=== PATIENT | female | born 1970 | race Caucasian/White ===

== ENCOUNTER 2022-10-19 00:04 | Day surgery (SDC) | payer OTHER, SELFPAY ==
[2022-10-10 14:25] VITALS: BMI 31.8
--- NOTE | 2022-10-18 16:04 | WPDANESEPPF ---
Anes - Initial Pre Proc Eval Procedure: Operation Date: 10/19/22 08:00 Proposed Procedures p Screening Colonoscopy - Long Bonds MD Date/Time: 10/18/22 16:04 Surgeon: Long Bonds MD Pre Op Diagnosis: neoplasm screening Patient Data Age: 52 Gender: F Height: 1.63 m Weight: 84 kg Allergies Allergy/AdvReac Type Severity Reaction Status Date / Time No Known Allergies Allergy Unknown Unverified 10/19/22 06:55 Home Medications Medication Instructions Recorded Confirmed Type albuterol sulfate 90 mcg/actuation 2 inh inhalation Q4H PRN Shortness 10/10/22 10/19/22 History aerosol inhaler Of Breath Or Wheezing aripiprazole 5 mg tablet 5 mg PO HS 10/10/22 10/19/22 History chlorthalidone 25 mg tablet 25 mg PO DAILY 10/10/22 10/19/22 History divalproex 250 mg tablet,extended 250 mg PO QAM 10/10/22 10/19/22 History release 24 hr divalproex 500 mg tablet,extended 500 mg PO HS 10/10/22 10/19/22 History release 24 hr ergocalciferol (vitamin D2) 1,250 1,250 mcg PO WEEKLY 10/10/22 10/19/22 History mcg (50,000 unit) capsule (Vitamin D2) lithium carbonate 300 mg capsule 900 mg PO HS 10/10/22 10/19/22 History lorazepam 1 mg tablet 1 mg PO BID PRN Anxiety 10/10/22 10/19/22 History norethindrone 1 mg-ethinyl 1 tablet PO DAILY 10/10/22 10/19/22 History estradiol 20 mcg (24)-iron 75 mg (4) tablet (Blisovi 24 Fe) verapamil 240 mg tablet,extended 240 mg PO HS 10/10/22 10/19/22 History release Patient hx anesthesia problems: none Family hx anesthesia problems: none Results Review: All pre-operative results and documents have been reviewed as part of the pre-operative evaluation. [facility] Past Medical History Medical History (Updated 10/19/22 @ 07:22 by Long Bonds MD) Anxiety Asthma Bipolar 1 disorder HTN (hypertension) Hyperlipidemia Obesity Social History Social History Smoking status: Never smoker Alcohol intake: current Substance use: never Substance use type: does not use Living arrangements: with family Spiritual care concerns: No Anes - Eval Final PreProcedure Day of Procedure 10/18/22 16:04 Patient weight: obese Heart: regular rate and rhythm Lungs: clear to auscultation and normal air movement Airway: Mallampati scale class II Neurological: alert and oriented Last oral intake: >/= 8 hours ASA classification: III Emergent: no Anesthetic plan: proceed Anesthesia type and monitoring: general GIVS Results Review: All pre-operative results and documents have been reviewed as part of the pre-operative evaluation. Informed Consent: The patient's anesthetic plan and its attendant risks and benefits were discussed with the patient/family/POA. Questions were solicited and answers provided to the satisfaction of the patient/family/POA.
[2022-10-19 07:02] VITALS: BP 179/97; PULSE 76; RESP 18; TEMP 36.3; O2SAT 98; BMI 31.2
[2022-10-19] MEDS: LACTATED RINGERS 1,000 ML 150 ML IV CONT (07:09)
--- NOTE | 2022-10-19 07:21 | P.HP_ITS ---
History of Present Illness History of Present Illness Consent: Risks, benefits, and alternatives have been discussed and questions answered. Patient agrees to proceed with procedure. Chief complaint: neoplasm screening Narrative: Laura Saba is a 52 year old female Presents for screening colonoscopy. Patient's current weight appetite and bowel movements are normal. Patient denies abdominal pain. She has had no bleeding. Family history noncontributory. Review of Systems Review of Systems: Review of systems noncontributory. [facility] Past Medical History Medical History (Updated 10/19/22 @ 07:22 by Long Bonds MD) Anxiety Asthma Bipolar 1 disorder HTN (hypertension) Hyperlipidemia Obesity Social History Social History Smoking status: Never smoker Alcohol intake: current Substance use: never Substance use type: does not use Living arrangements: with family Spiritual care concerns: No Meds Home Medications and Allergies Home Medications Medication Instructions Recorded Confirmed Type albuterol sulfate 90 mcg/actuation 2 inh inhalation Q4H PRN Shortness 10/10/22 10/19/22 History aerosol inhaler Of Breath Or Wheezing aripiprazole 5 mg tablet 5 mg PO HS 10/10/22 10/19/22 History chlorthalidone 25 mg tablet 25 mg PO DAILY 10/10/22 10/19/22 History divalproex 250 mg tablet,extended 250 mg PO QAM 10/10/22 10/19/22 History release 24 hr divalproex 500 mg tablet,extended 500 mg PO HS 10/10/22 10/19/22 History release 24 hr ergocalciferol (vitamin D2) 1,250 1,250 mcg PO WEEKLY 10/10/22 10/19/22 History mcg (50,000 unit) capsule (Vitamin D2) lithium carbonate 300 mg capsule 900 mg PO HS 10/10/22 10/19/22 History lorazepam 1 mg tablet 1 mg PO BID PRN Anxiety 10/10/22 10/19/22 History norethindrone 1 mg-ethinyl 1 tablet PO DAILY 10/10/22 10/19/22 History estradiol 20 mcg (24)-iron 75 mg (4) tablet (Blisovi 24 Fe) verapamil 240 mg tablet,extended 240 mg PO HS 10/10/22 10/19/22 History release Allergies Allergy/AdvReac Type Severity Reaction Status Date / Time No Known Allergies Allergy Unknown Unverified 10/19/22 06:55 Vital Signs Vital Signs - 24 hr 10/19/22 07:02 Temperature 97.3 F L Pulse Rate 76 Respiratory Rate 18 Blood Pressure 179/97 H Pulse Oximetry 98 Oxygen Delivery Room Air Exam Narrative: Physical exam reveals patient be alert. Vital signs stable. HEENT exam is unremarkable. Patient is anicteric. Lungs are clear to auscultation and percussion. Heart is without murmur or extra sounds. Abdomen bowel sounds present soft nontender with no organomegaly. Assessment and Plan Assessment and plan (1) Encounter for screening colonoscopy: Code(s): Z12.11 - Encounter for screening for malignant neoplasm of colon Status: Acute Assessment and Plan: Patient presents today for screening colonoscopy. She appears to be at average risk for colon polyps. (2) Bipolar 1 disorder: Code(s): F31.9 - Bipolar disorder, unspecified Status: Acute
[2022-10-19 08:20] VITALS: BP 133/87; PULSE 75; RESP 23; O2SAT 97
[2022-10-19 08:30] VITALS: BP 146/101; PULSE 64; RESP 17; O2SAT 99
[2022-10-19 08:40] VITALS: BP 159/100; PULSE 62; RESP 15; O2SAT 99
== END 2022-10-19 08:48 | disposition home or self-care (01) ==
PROVIDERS: PCP Internal Medicine; Visit Provider Internal Medicine Gastroenterology
PROC: 0DJD8ZZ Inspection of Lower Intestinal Tract, Via Natural or Artificial Opening Endoscopic (ICD-10-PCS; CPT 45378; principal; 2022-10-19 08:00)
DX: Z12.11 Encounter for screening for malignant neoplasm of colon (principal); K64.8 Other hemorrhoids; I10 Essential (primary) hypertension; E78.5 Hyperlipidemia, unspecified; J45.909 Unspecified asthma, uncomplicated; F31.9 Bipolar disorder, unspecified; F41.9 Anxiety disorder, unspecified; E66.9 Obesity, unspecified; Z68.31 Body mass index [BMI] 31.0-31.9, adult; Z79.51 Long term (current) use of inhaled steroids
CPT/HCPCS: 45378; J2704; J7120

== ENCOUNTER 2024-04-11 16:22 | Emergency (ER) | payer OTHER, SELFPAY ==
--- NOTE | ~2024-04-11 | XR_ITS ---
EXAMINATION: XR foot LT min 3V DATE: 04/11/2024 19:49 INDICATION: Swelling and erythema TECHNIQUE: Dorsoplantar, oblique and lateral views of the left foot were obtained. COMPARISON: 04/17/2017 FINDINGS: Alignment is normal. No fracture. Joint spaces are normal. No cortical erosions or periosteal reactio n. Small Achilles and plantar calcaneal spurs. Prominent soft tissue swelling over the dorsum of the foot. IMPRESSION: 1. No acute osseous abnormality. Reviewed, dictated and finalized at location A.
[2024-04-11 16:25] VITALS: BP 161/110; PULSE 99; RESP 15; O2SAT 100
--- NOTE | 2024-04-11 19:45 | ED.GENADULT ---
HPI - General Adult General Chief complaint: Extremity Problem,Nontraumatic Stated complaint: left foot swelling Time Seen by Provider: 04/11/24 19:16 History of Present Illness HPI narrative: this is a 53-year-old female with chronic lower extremity edema presenting with redness and swelling to her left foot. Patient is unsure with was traumatic as she has a large dog that jumped on her foot playfully. It has now become red and painful and warm to touch. No history of cellulitis. No systemic signs of illness. The patient's physicians have recently taken her off diuretics due to some elevated cholesterol levels. Related Data Home Medications Medication Instructions Recorded Confirmed albuterol sulfate 90 mcg/actuation 2 inh inhalation Q4H PRN Shortness 10/10/22 10/19/22 aerosol inhaler Of Breath Or Wheezing aripiprazole 5 mg tablet 5 mg PO HS 10/10/22 10/19/22 chlorthalidone 25 mg tablet 25 mg PO DAILY 10/10/22 10/19/22 divalproex 250 mg tablet,extended 250 mg PO QAM 10/10/22 10/19/22 release 24 hr divalproex 500 mg tablet,extended 500 mg PO HS 10/10/22 10/19/22 release 24 hr ergocalciferol (vitamin D2) 1,250 1,250 mcg PO WEEKLY 10/10/22 10/19/22 mcg (50,000 unit) capsule (Vitamin D2) lithium carbonate 300 mg capsule 900 mg PO HS 10/10/22 10/19/22 lorazepam 1 mg tablet 1 mg PO BID PRN Anxiety 10/10/22 10/19/22 norethindrone 1 mg-ethinyl 1 tablet PO DAILY 10/10/22 10/19/22 estradiol 20 mcg (24)-iron 75 mg (4) tablet (Blisovi 24 Fe) verapamil 240 mg tablet,extended 240 mg PO HS 10/10/22 10/19/22 release Allergies Allergy/AdvReac Type Severity Reaction Status Date / Time No Known Allergies Allergy Unknown Verified 04/11/24 16:22 [facility] Past Medical History Medical History Anxiety Asthma Bipolar 1 disorder HTN (hypertension) Hyperlipidemia Obesity Social History Social History Smoking status: Never smoker Alcohol intake: current Substance use: never Substance use type: does not use Living arrangements: with family Spiritual care concerns: No Exam Narrative: APPEARANCE: No apparent distress. Head: atraumatic. EYES: EOMI, NOSE: Atraumatic NECK: Trachea midline RESPIRATORY: No increased rate of breathing CARDIOVASCULAR: RRR, Plus two pitting edema of the legs bilaterally. Redness and erythema over the patient's left foot with warmth. There is no fluctuance. Point of care 3 point compression test the left leg revealed no DVTs. ABDOMINAL: Non-distended MUSCULOSKELETAl: No obvious deformities NEURO: Alert. Moving 4/4 extremities SKIN:: Warm, dry. Normal color PSYCHIATRIC: Normal affect Course Vital Signs Vital signs: Vital Signs Pulse Rate 99 04/11/24 16:25 Respiratory Rate 15 04/11/24 16:25 Blood Pressure 161/110 H 04/11/24 16:25 Pulse Oximetry 100 04/11/24 16:25 Oxygen Delivery Room Air 04/11/24 16:25 Pulse Rate 73 04/11/24 20:13 Respiratory Rate 20 04/11/24 20:13 Blood Pressure 146/98 H 04/11/24 20:13 Pulse Oximetry 100 04/11/24 20:13 Oxygen Delivery Room Air 04/11/24 16:25 Medical Decision Making [facility] Narrative Medical decision making narrative: -Course: 53-year-old female presenting redness and swelling of her left foot. Point of care DVT ultrasound was negative and her edema is chronic some less concerned for the acute DVT. X-rays negative. Patient given Ancef IV. Discharged on antibiotics for suspected cellulitis. Given return precautions. -DDX includes but is not limited to: Cellulitis, DVT, chronic edema, gout -Independent interpretation of studies: -Interventions: 2 g Ancef -Shared decision making / Disposition:discharged. -RX cephalexin 500 mg t.i.d. times x7 days Vital Signs Vital Signs: Vital Signs Pulse Rate 99 04/11/24 16:25 Respiratory Rate 15 04/11/24 16:25 Blood Press
[2024-04-11 20:13] VITALS: BP 146/98; PULSE 73; RESP 20; O2SAT 100
[2024-04-11 20:16] LABS: Basophils Percent Auto 0.4 % (0.2-1.2); Eosinophils Absolute Auto 0.3 K/mm3 (0-0.3); Eosinophils Percent Auto 2.4 % (0-4.4); Hematocrit 40.3 % (37.0-47.0); Immature Granulocyte Absolute 0.03 K/mm3 (0.00-0.031); Immature Granulocyte Percent A 0.3 % (0-0.5); Lymphocytes Absolute Auto 3.53 K/mm3 (0.9-3.2); Lymphocytes Percent Auto 33.6 % (18.3-44.2); Mean Corpuscular HGB Conc 32.3 g/dl (32-36); Mean Corpuscular Hemoglobin 30.4 pg (26-34); Mean Corpuscular Volume 94.4 fl (80-100); Mean Platelet Volume 10.3 fl (7.4-10.4); Monocytes Absolute Auto 0.7 K/mm3 (0.1-0.6); Monocytes Percent Auto 6.4 % (2.6-8.5); Neutrophils Percent Auto 56.9 % (45.5-73.1); Platelet Count Result 335 k/mm3 (150-375); Red Blood Count 4.27 M/mm3 (4.2-5.4); Red Cell Distribution Width 13.2 % (11.5-14.5); White Blood Count 10.5 K/mm3 (4.5-10.0)
[2024-04-11] MEDS: ceFAZolin 2 GM/D5W 50 ML 2 GM/50 ML BAG IVPB (20:16)
[2024-04-11 20:27] LABS: Alanine Aminotransferase 18 U/L (6-35); Albumin Level 4.2 g/dL (3.5-5.1); Alkaline Phosphatase 60 U/L (38-126); Anion Gap 11 mmol/L (4-12); Aspartate Amino Transferase 25 U/L (14-36); Bilirubin,Total 0.3 mg/dL (0.2-1.3); Blood Urea Nitrogen 13 mg/dL (7-17); Calcium 10.3 mg/dL (8.4-10.2); Carbon Dioxide 29 mmol/L (22-30); Chloride 102 mmol/L (98-107); Estimated CRCL calculation 85 ml/min; Estimated Glomerular Filt Rate > 60; Glucose 99 mg/dL (65-110); Potassium 3.7 mmol/L (3.4-5.0); Sodium 142 mmol/L (137-145)
[2024-04-11 20:29] LABS: Partial Thromboplastin Time 24.9 Seconds (22.3-36.8); Prothrombin Time 13.6 Seconds (11.1-14.7)
[2024-04-11 21:30] VITALS: BP 144/81; PULSE 73; RESP 20; O2SAT 99
== END 2024-04-11 21:30 | disposition home or self-care (01) ==
PROVIDERS: Emergency Provider Emergency Medicine; PCP Internal Medicine
DX: L03.116 Cellulitis of left lower limb (principal); I10 Essential (primary) hypertension; E78.5 Hyperlipidemia, unspecified; E66.9 Obesity, unspecified; Z68.30 Body mass index [BMI] 30.0-30.9, adult; R60.0 Localized edema; J45.909 Unspecified asthma, uncomplicated; F31.9 Bipolar disorder, unspecified; F41.9 Anxiety disorder, unspecified; Z79.899 Other long term (current) drug therapy
CPT/HCPCS: 36415; 73630; 80053; 85025; 85610; 85730; 96365; 99284; J0690

== ENCOUNTER 2025-08-25 08:22 | Outpatient (CLI) | payer OTHER, SELFPAY ==
--- NOTE | ~2025-08-25 | DEXA_ITS ---
Bone Density Report Name: ANN MORRIS Age: 55 Sex: Female Ethnicity: White Date of : 1970 Indication: postmenopausal; screening for osteoporosis; height loss; cancer; asthma or emphysema; Referring Provider: ADAM, LEEANNE Study: Bone densitometry was performed. Exam Date: August 25, 2025 Accession number: [id number] Bone Density: Region BMD T-score Z-score Classification AP Spine(L1-L4) 1.142 0.9 1.8 Normal Femoral Neck (Left) 0.682 -1.5 -0.6 Osteopenia Total Hip (Left) 0.997 0.4 1.0 Normal Femoral Neck (Right) 0.733 -1.0 -0.1 Normal Total Hip (Right) 0.981 0.3 0.9 Normal Total Hip Mean 0.989 0.4 1.0 Normal World Health Organization criteria for BMD impression classify patients as: Normal (T-score at or above -1.0), Osteopenia (T-score between -1.0 and -2.5), or Osteoporosis (T-score at or below -2.5). 10-year Fracture Risk(1): Major Osteoporotic Fracture 5.6% Hip Fracture 0.4% Reported Risk Factors: [place] (), Neck BMD=0.682, BMI=31.9 (1) FRAX(R) Version 3.08. Fracture probability calculated for an untreated patient. Fracture probability may be lower if the patient has received treatment. Clinical Information Provided by Patient: Has used the following medications: Vitamin D Has the following medical conditions: Asthma or Emphysema, Cancer Patient maximum height was 64.0 Menopause Age: 54 No regular weight bearing exercise Drinks caffeinated beverages Onset of menses at age 14 Number of children 1 Impression: The patient has low bone mass, based on the Left Femoral Neck T-score. The patient has an estimated ten-year risk of hip fracture of 0.4% and an estimated ten-year risk of major fracture of 5.6%, based on the WHO FRAX algorithm. Discussion: BONE DENSITY IS LOW AT ONE OR MORE SKELETAL SITES. This patient's lowest T-score is low at one or more skeletal sites. It meets the World Health Organization's (WHO) criteria for ?low bone mass? (T-score between -1.0 and -2.5). The patient's 10-year risk of fracture as calculated by FRAX is less than the threshold where pharmacological therapy is recommended by the National Osteoporosis Foundation (NOF). However, all treatment decisions require clinical judgment and consideration of individual patient factors, including patient preferences, comorbidities, previous drug use, risk factors not captured in the FRAX model (e.g., frailty, falls, vitamin D deficiency, increased bone turnover, interval significant decline in bone density) and possible under or overestimation of fracture risk by FRAX. The patient should follow a healthful lifestyle (good nutrition with adequate calcium and vitamin D, and appropriate weight-bearing exercise). Follow-Up: Consider repeating this study in 2 to 3 years to reassess this patient's status, or sooner if there is some new clinical indication. Reported by: ANTHONY on 08/25/2025 9:09:00 AM. Reviewed, dictated and finalized at location A.
--- OUTSIDE RECORDS SUMMARY | 2025-08-25 08:42 | XMS_ITS | Clinical Summary ---
Author Organization [facility] Address [address] [place] [address] Care Team Providers Care Regional Marketing Director Name Role Phone Cayla Pink CONSOLIDATION ACCOUNTANT-[employer] PROGRAM TECHNICIAN Primary Care Provider + Source Comments [facility],non-owned Affiliates and Associated Physician Practices is amultiple site organization consisting of ambulatory clinics and hospital sitesin [place], [place], [place] and [place]. This disclosure is being madepursuant to the Care Everywhere program and may not contain all information available regarding this patient. Last updated 18.[facility] Allergies No known active allergies Medications * Be aware that medications may not be up to date on this document. Alwaysverify current medications with the patient. FENOFIBRATE PO Activ e MONTELUKAST SODIUM PO Active DIVALPROEX SODIUM PO Active LITHIUM CARBONATE PO Active methyldopa (ALDOMET) 250 MG tablet Take 250 mg by mouth 2 times daily Active Family History Relation Name Status Comments Father Alive Mother Alive Social History Tobacco Use Types Packs/Day Years Used Date Smoking Tobacco: Never Smokeless Tobacco: Never Comments No Sex and Gender Information Value Date Recorded Sex Assigned at Not on file Legal Sex Female 12:57 PM [employer] Gender Identity Not on file Sexual Orientation Not on file Last Filed Vital Signs Vital Sign Reading Time Taken Comments Blood Pressure 118/72 05/13/2017 6:37 PM CDT Pulse 68 05/13/2017 6:37 PM CDT Temperature 36.8 C (98.3 F) 05/13/2017 6:37 PM CDT Respiratory Rate 16 05/13/2017 6:37 PM CDT Oxygen Saturation 99% 05/13/2017 6:37 PM CDT Inhaled Oxygen Concentration - - Weight 79.4 kg (175 lb) 05/13/2017 6:37 PM CDT Height 160 cm (5' 3) 05/13/2017 6:37 PM CDT Body Mass Index 31 05/13/2017 6:37 PM CDT Plan of Treatment Health Maintenance Due Date Last Done Comments COLOGUARD (AGES 45-75) - COL ON CA SCREENING 1972 COLON MONITORING 1972 COLONOSCOPY - COLON CA SCREENING 1972 CT COLONOGRAPHY - COLON CA SCREENING 1972 Colorectal Cancer Screening 1972 FIT - COLON CA SCREENING 1972 FLEX SIG - COLON CA SCREENING 1972 LIPID TESTING 1972 MAMMOGRAM 1972 HIV SCREENING 1987 HEPATITIS C SCREENING 08/01/1990 DTAP/TDAP/TD VACCINES (1 - Tdap) 1991 HEPATITIS B VACCINE (1 of 3 - 19+ 3-dose series) 1991 SCREENING FOR DIABETES 05/13/2017 PNEUMOCOCCAL VACCINE 50+ (1 of 1 - PCV) 2022 ZOSTER VACCINE (1 of 2) 2022 DEPRESSION SCREENING 09/23/2024 COVID-19 VACCINE (1 - 2024-2 6 season) 2025 INFLUENZA VACCINE (#1) 2025 HIB VACCINE Aged Out No longer eligi ble based on patient's age to complete this topic HPV VACCINE Aged Out No longer eligi ble based on patient's age to complete this topic MENINGOCOCCAL (Group B) VACC INE SHARED DECISION-MAKING Aged Out No longer eligibl e based on patient's age to complete this topic MENINGOCOCCAL GROUPS A/C/Y/W VACCINE Aged Out No longer eligible b ased on patient's age to complete this topic Insurance [employer] Care Teams Regional Marketing Director Relationship Specialty Start Date End Date Cayla Pink APRN-SEVERIANO [address] [id number] PCP - General Nurse Practitioner 05/13/17
--- OUTSIDE RECORDS SUMMARY | 2025-08-25 08:43 | XMS_ITS | Clinical Summary ---
Author Organization [facility] Address [address] [place] [address] Care Team Providers [employer] Name Role Phone Oscar Champion MD Unavailable [phone] Redd Pedroza MD Primary Care Provider [phone] Maya Velez MD Unavailable [phone] Allergies Active Allergy Reactions Criticality Noted Date Comments Animal Dander Unknown 04/11/2016 Other Unknown 04/11/2016 Medications LITHIUM 300 mg capsule Take 2 tablet/capsul e (600 mg total) by mouth daily Along with 150mg to equal 750mg daily 5 08/15/2018 Active lithium 150 mg capsule Take 1 capsule (150 mg total) by mouth daily Along with 2 300mg (600mg) to equal 750mg daily 03/15/2023 Active divalproex ER (DEPAKOTE ER) 500 mg 24 hr tablet Take 1 tablet (500 mg total) by mouth nightly 02/25/2023 Active blood glucose diagnostic (glucose blood) strip Test blood sugar TID and prn 100 each 11/21/2023 Active lancets misc 1 each by other route 3 (three) times a day 100 each 02/21/2024 Active divalproex ER (DEPAKOTE ER) 250 mg 24 hr tablet Take 1 tablet (250 mg total) by mouth every morning 02/11/2024 Active olmesartan (BENICAR) 20 mg tablet TAKE 1 TABLET BY MOUTH EVERY DAY 90 tablet 2 11/23/2024 Active verapamil SR (CALAN SR) 240 mg CR tablet TAKE 1 TABLET BY MOUTH EVERY DAY AT NIGHT 90 tablet 3 11/30/2024 Active albuterol HFA (PROVENTIL HFA,VENTOLIN HFA,PROAIR HFA) 90 mcg/actuation inhaler Inhale 2 puffs every 4 (four) hours as needed for wheezing 1 each 1 12/07/2024 Active icosapent ethyL (VASCEPA) 1 gram capsule TAKE 2 CAPSULES BY MOUTH 2 TIMES A DAY. 360 capsule 2 12/07/2024 Active furosemide (LASIX) 20 mg tablet TAKE 1 TABLET BY MOUTH EVERY DAY 90 tablet 3 01/04/2025 Active metFORMIN XR (GLUCOPHAGE XR) 500 mg 24 hr tablet TAKE 1 TABLET BY MOUTH EVERY DAY WITH DINNER 90 tablet 3 05/26/2025 Active blood glucose diagnostic ([employer] Verio test strips) strip In Vitro 02/11/2024 Active ergocalciferol (VITAMIN D) 50,000 unit capsule TAKE 1 CAPSULE BY MOUTH ONE TIME PER WEEK 12 capsule 3 07/12/2025 Active Active Problems Problem Noted Date Diagnosed Date Hypertriglyceridemia 06/09/2024 Assessment & Plan (10/08/2024 4:44 PM FINANCIAL BUSINESS ANALYST): 54 y.o. and female with dyslipidemia, including severe hypertriglyceridemia ( >=175 mg/dl), and risk enhancing factor - elevated hs-CRP (>=2.0 mg/L), currently treated with lipid-lowering therapies Icosapent Ethyl (Vascepa) 2 gm PO BID; most recent lipid profile reviewed. History of statin intolerance = No 10-year risk of future ASCVD = low risk (<5%) CT coronary calcium score = N/A Most recent lipid profile Lab Results Component Value Date POCCHOL 228 04/04/2023 POCTRIG 482 05/15/2022 POCHDL 37 05/15/2022 Lab Results Component Value Date CHOL 163 09/07/2024 TRIG 482 (H) 09/07/2024 HDL 34 (L) 09/07/2024 LDLCALC See Comment 09/07/2024 Lab Results Component Value Date LDLDIRECT 57 09/07/2024 Lab Results Component Value Date LIPOA 13 03/19/2024 Lab Results Component Value Date APOB 79 03/19/2024 Lab Results Component Value Date CRPHS 12.72 03/19/2024 TG = 482(H) [ref. range: <= 149 mg/dL] - Persistently elevated, primary hypertriglyceridemia ( >=175 mg/dl) constitutes a risk enhancing factor hs-CRP = 12.72(H) [ref. range: <= 2 mg/L] - hs-CRP >=2.0 mg/L constitutes a risk enhancing factor Plan: 1) Repeat lipid panel at least annually; check Lp(a), ApoB, and hs-CRP as indicated 2) Weight control, exercise, diet (low saturated fat and sugar), smoking cessation (if applicable) 3) Consider adding statin (for TG reduction; LDL-C < 70 mg/dL at target range already) 4) No indications for adding other non-statin LDL-C lowering agents (if LDL-C remains > 70 mg/dl and/or statin intolerant) 5) No indications for adding PCSK9 inhibitor (if further LDL-C reduction needed and/or statin intolerant) 6) TG-lowering agents: CONTINUE Icosapent Ethyl (Vascepa) 2 gm PO BID Consider ADDING Fenofibrate (Tricor) 145 mg daily (avoid if active renal-liver disease) ELIMINATE added sugars (<5% of total calories), low-fat diet (<=10 to 15% of total calories), abstain from alcohol OFF Aripiprazole (Abilify), which can cause aripiprazole-induced hypertriglyceridemia and weight gain Hyperglycemia, OCPs, beta-blockers, thiazide & loop diuretics can also exacerbate hypertriglyceridemia (TGs) - ?taking Chlorthalidone (thiazide-like diuretic)? Type 2 diabetes mellitus wit hout complication, without long-term current use of insulin 03/24/2024 Assessment & Plan (12/07/2024 8:59 AM CDT): Stable, will continue as before. Assessment & Plan (10/08/2024 4:45 PM FINANCIAL BUSINESS ANALYST): 54 y.o. female with type 2 diabetes mellitus, insulin-naive (Metformin monotherapy), complicated by hypertension, hyperlipidemia and severe hypertriglyceridemia, obesity, thyroid nodule, vitamin D deficiency, and bipolar disorder (on [place] mood stabilizer). She has a history of gestational diabetes (GDM), which required treatment with insulin. Glycemic control at target (target A1c < 7.0%) No episodes of hypoglycemia; adherent with medications and BG monitoring (glucometer) No results found for: CPEPTIDE, [id number], IA2AB Lab Results Component Value Date HGBA1C 5.7 09/07/2024 GLUCOSE 106 09/07/2024 Plan: 1) Medications Continue Metformin XR 500 mg PO qPM (monitor GFR >30, check B12 level) Consider adding GLP-1 receptor agonist 2) Monitoring BG testing supplies - glucometer and/or continuous glucose monitor (CGM) Emergency glucagon treatment product, if appropriate Gvoke HypoPen or Zegalogue premixed glucagon auto-injector Baqsimi glucagon nasal powder Hgb A1C, renal function panel, lipid profile, urine microalbumin:Cr Follow-up with ambulatory diabetes education Retinal examination - follow-up with Ophthalmology Foot care evaluation - follow-up with Podiatry Vaccinations: Flu (yearly), Tdap, Hep B, Herpes zoster (50 yr), COVID-19 Assessment & Plan (03/24/2024 11:06 PM CDT): 53 y.o. female with type 2 diabetes mellitus, insulin-naive (Metformin monotherapy), complicated by hypertension, hyperlipidemia and severe hypertriglyceridemia, obesity, thyroid nodule, vitamin D deficiency, and bipolar disorder (on [place] mood stabilizer). She has a history of gestational diabetes (GDM), which required treatment with insulin. C-peptide = N/A Glycemic control at target with recent Hgb A1c = 6.6% (02/21/2024) (target A1c < 7.0%) No episodes of hypoglycemia; adherent with medications and BG monitoring (glucometer) Plan: 1) Medications Continue Metformin XR 500 mg PO qPM (monitor GFR >30, check B12 level) Consider adding GLP-1 receptor agonist 2) Monitoring BG testing supplies - glucometer and/or continuous glucose monitor (CGM) Emergency glucagon treatment product, if appropriate Gvoke HypoPen or Zegalogue premixed glucagon auto-injector Baqsimi glucagon nasal powder Hgb A1C, renal function panel, lipid profile, urine microalbumin:Cr Follow-up with ambulatory diabetes education Retinal examination - follow-up with Ophthalmology Foot care evaluation - follow-up with Podiatry Vaccinations: Flu (yearly), Tdap, Hep B, Herpes zoster (50 yr), COVID-19 Vitamin D deficiency 03/19/2024 Assessment & Plan (03/19/2024 4:41 PM CDT): 53 y.o. female with history of vitamin D deficiency-insufficiency previously treated with Vit D2 50,000 IU/weekly Latest Vitamin 25(OH)-D level = 24.2(L) (21-29 ng/ml, Insufficiency) (<20 ng/ml, Deficiency) Denies active symptoms: no fatigue, no bone pain, no muscle [id number], no mood changes (depression). Risk factors: no dark-colored skin, no obesity, no bariatric surgery, no cystic fibrosis, no Crohn's disease, no celiac disease, no hepatic-renal disease Plan: 1) Check Vit 25(OH)-D level (if not done in last 3 months) 2) Start Vit D2 50,000 IU/weekly x 8-12 weeks; then transition to maintenance Vit D3 2,000-5,000 IU/day Mixed hyperlipidemia 03/19/2024 Assessment & Plan (03/24/2024 11:13 PM CDT): 53 y.o. and female with mixed hyperlipidemia associated with type 2 diabetes mellitus, including severe hypertriglyceridemia (TG >500 mg/dL) NOT on statin + recently started on Icosapent Ethyl (Vascepa) 2 gm PO BID for TGs; most recent lipid profile reviewed. Diabetes and dyslipidemia (increased LDL-C and/or TGs) are both high risk conditions for ASCVD ASCVD 10-year risk score = 11.3% (High-intensity statin recommended because of known diabetes and 10-year risk >=7.5%) Lab Results Component Value Date CHOL 252 (H) 11/11/2023 TRIG 1,590 (HH) 02/21/2024 HDL 27 (L) 11/11/2023 LDLCALC Comment (A) 11/11/2023 Latest lipid panel (11/11/2023 and 03/19/2024): Cholesterol = 252(H) [ref. range: 30-199 mg/dL] HDL-C = 27(L) [ref. range: >= 40 mg/dL] LDL-C = N/A [ref. range: <= 129 mg/dL] - Primary hypercholesterolemia (LDL-C 160-189 mg/dL constitutes a risk enhancing factor TG = 1,590(H) [ref. range: <= 149 mg/dL] - Persistently elevated, primary hypertriglyceridemia ( >=175 mg/dl) constitutes a risk enhancing factor Lp(a) = 13 [ref. range: <= 75 nmol/L] - Lp(a) >= 50 mg/dL or >=125 nmol/L constitutes a risk enhancing factor ApoB = 79 [ref. range: <= 90 mg/dL] - ApoB level >= 130 mg/dL corresponds to an LDL-C >=160 mg/dL and constitutes a risk enhancing factor hs-CRP = 12.72(H) [ref. range: <= 2 mg/L] - hs-CRP >=2.0 mg/L constitutes a risk enhancing factor Consider checking Lp(a) and ApoB; especially if personal history or first-degree relative with premature ASCVD (particularly if otherwise considered low-risk), severe hypercholesterolemia (LDL-C >=190), or borderline ASCVD risk (10-year risk = 5 to 7.5%) Levels of apo B and LDL-C are discordant in 20% of patients, including those with elevated triglycerides, type 2 diabetes or obesity. In some patients, LDL-C levels can appear satisfactory, but the true level of circulating atherogenic particles is actually high. An elevated apo B level in these patients predicts a higher risk of atherosclerotic cardiovascular disease. In such patients, treatment with a lipid-lowering drug should be considered. Plan: 1) Repeat lipid panel at least annually; check Lp(a) and ApoB as indicated 2) Weight control, exercise, diet (low saturated fat and sugar), smoking cessation (if applicable) 3) Consider STARTING statin (for both LDL-C & TG reduction) - pending results from novel lipid biomarkers and repeat lipid panel (Atorvastatin 10-20 to 40-80 mg/day -or - Rosuvastatin 5-10 to 20-40 mg/day) 4) Consider adding Ezetimibe 10 mg/day (if LDL-C remains > 70 mg/dl) 5) CONTINUE TG-lowering agent - Icosapent Ethyl (Vascepa) 2 gm PO BID Consider ADDING Fenofibrate (Tricor) 145 mg daily (use with low- or mod- intensity statins; avoid if active renal-liver disease) ELIMINATE added sugars (<5% of total calories), low-fat diet (<=10 to 15% of total calories), abstain from alcohol OFF Aripiprazole (Abilify), which can cause aripiprazole-induced hypertriglyceridemia and weight gain Hyperglycemia, OCPs, beta-blockers, thiazide & loop diuretics can also exacerbate hypertriglyceridemia (TGs) - ?taking Chlorthalidone (thiazide-like diuretic)? Essential hypertension 05/15/2022 Encounter for screening colonoscopy 11/30/2020 Overview (11/30/2020): Added automatically from request for surgery [id number] Mild intermittent asthma without complication Assessment & Plan (11/24/2020 10:45 AM FINANCIAL BUSINESS ANALYST): Will give albuterol Thyroid nodule 11/24/2020 Assessment & Plan (12/07/2024 8:59 AM CDT): stable Assessment & Plan (10/08/2024 4:45 PM FINANCIAL BUSINESS ANALYST): 54 y.o. female with history of right mid thyroid nodule 0.5 cm unchanged NOT meeting EDGARDO guidelines for biopsy via fine-needle aspiration (FNA) - last US Thyroid 02/18/2020 Patient is a clinically and biochemically euthyroid - intact thyroid function; however, she is also treated with [place], which can cause goiter and hypothyroidism Discussed natural history and course of follow-up of thyroid nodules, including the need to repeat Thyroid US and possible need to perform fine-needle aspiration procedure in future, risks and benefits, patient is willing to proceed Deferred discussion of potential results including benign, malignant, AUS/FLUS, and suspicious Plan: 1) Repeat TSH, FT4, FT3, if not done within last 3-6 months 2) US Head-Neck to assess thyroid nodules and determine if biopsy via fine- needle aspiration (FNA) is warranted (meets EDGARDO criteria) Assessment & Plan (03/19/2024 4:40 PM CDT): 53 y.o. female with history of right mid thyroid nodule 0.5 cm unchanged NOT meeting EDGARDO guidelines for biopsy via fine-needle aspiration (FNA) - last US Thyroid 02/18/2020 Patient is a clinically and biochemically euthyroid - intact thyroid function; however, she is also treated with [place], which can cause goiter and hypothyroidism Discussed natural history and course of follow-up of thyroid nodules, including the need to repeat Thyroid US and possible need to perform fine-needle aspiration procedure in future, risks and benefits, patient is willing to proceed Deferred discussion of potential results including benign, malignant, AUS/FLUS, and suspicious Plan: 1) Repeat TSH, FT4, FT3, if not done within last 3-6 months 2) US Head-Neck to assess thyroid nodules and determine if biopsy via fine- needle aspiration (FNA) is warranted (meets EDGARDO criteria) Iron deficiency anemia due to chronic blood loss 08/27/2018 Assessment & Plan (12/07/2024 8:59 AM CDT): Stable, will continue as before. Encounters Date Type Department Care Team Description 08/20/2025 Orders Only [facility] [address] [place] [phone] Redd Pedroza MD 06/10/2025 1:40 PM CDT - 06/10/2025 11:59 PM CDT Hospital Encounter [facility] [address] [place] [address] Type 2 diabetes mellitus without complication, without long-term current use of insulin (HCC); Essential hypertension; Hypertriglyceridemia ; Thyroid nodule; Encounter for hepatitis C screening test for low risk patient Discharge Disposition: Discharge to home or self care 06/10/2025 8:00 AM CDT Office Visit [facility] [address] [place] [phone] Redd Pedroza MD Type 2 diabetes mellitus without complication, without long-term current use of insulin (HCC) (Primary Dx); Immunization due; Essential hypertension; Hypertriglyceridemia ; Thyroid nodule; Encounter for hepatitis C screening test for low risk patient from Last 3 Months Immunizations Immunization Administration Dates Next Due DTaP 06/13/2010 Influenza, Quadrivalent, Spl it, Preservative Free, Intramuscular 10/08/2021 Influenza, Trivalent, IM (MDV) 06/23/2016,2014 Influenza, Trivalent, Preservative Free, Intramu scular 05/31/2014 Influenza, Trivalent, Recomb inant, Egg Free, Preservative Free, Antibiotic Free, IM (FLUBLOK) 06/10/2025 Influenza, Unspecified 07/13/2024 Pneumococcal Polysaccharide PPV23 07/08/2012 Tdap 11/06/2021 Surgical History Surgery Date Site/Laterality Comments OVARIAN CYST SURGERY APPENDECTOMY Medical History Medical History Date Comments Hypertension Allergic Type 2 diabetes mellitus wit hout complication, without long-term current use of insulin (HCC) 03/24/2024 Family History Medical History Relation Name Comments Mitral valve prolapse Father Colon cancer Maternal Grandmother Breast cancer Mother Hyperlipidemia Mother Relation Name Status Comments Father Maternal Grandmother (Age 78) Mother Social History Tobacco Use Types Packs/Day Years Used Date Smoking Tobacco: Never Smokeless Tobacco: Never Tobacco Cessation:Counseling Given: Not Answered Alcohol Use Standard Drinks/Week Comments Yes 0 (1 standard drink = 0.6 oz pur e alcohol) PHQ-2 Answer Date Recorded PHQ-2 Total Score (If total score is 3 or more points, staff should administer the PHQ-9) 0 09/05/2024 Comments Unknown Sex and Gender Information Value Date Recorded Sex Assigned at Not on file Legal Sex Female 12:41 AM FINANCIAL BUSINESS ANALYST Gender Identity Female 05/28/2025 5:09 AM CDT Sexual Orientation Not on file Last Filed Vital Signs Vital Sign Reading Time Taken Comments Blood Pressure 115/80 06/10/2025 7:49 AM CDT Pulse 76 06/10/2025 7:49 AM CDT Temperature 36.8 C (98.2 F) 10/08/2024 3:53 PM FINANCIAL BUSINESS ANALYST Respiratory Rate 18 11/28/2018 3:15 PM FINANCIAL BUSINESS ANALYST Oxygen Saturation 96% 09/07/2024 8:48 AM FINANCIAL BUSINESS ANALYST Inhaled Oxygen Concentration - - Weight 83 kg (183 lb) 06/10/2025 7:49 AM CDT Height 162.6 cm (5' 4) 06/10/2025 7:49 AM CDT Body Mass Index 31.41 06/10/2025 7:49 AM CDT Plan of Treatment Health Maintenance Due Date Last Done Comments Cervical Cancer Screening 1972 Dilated Eye Exam 1972 Foot Exam 1972 Hepatitis B Screening 1990 Pneumococcal vaccine <65 (2 of 2 - PCV) 07/08/2013 07/08/2012 Zoster Vaccine (1 of 2) 2022 Covid-19 Vaccine (4 - 2024-2 6 season) 2025 10/08/2021, 01/06/2021, 12/14/2020 Breast Cancer Screening-Mammogram 09/04/2025 09/04/2024, 09/03/2023, 09/03/2022, Additional history exists Depression Screening 09/07/2025 09/07/2024 Regular Well Visit/Exam 18-64 09/07/2025 09/07/2024, 11/24/2020 eGFR 10/08/2025 10/08/2024, 08/23, 04/25/2024, Additional history exists Hemoglobin A1C 12/08/2025 06/10/2025, 11/21, 09/07/2024, Additional history exists Albumin Creatinine Ratio, Urine 06/10/2026 06/10/2025, 10/08/2024, 09/07/2024 Lipid Panel 06/10/2026 06/10/2025, 08/23, 06/09/2024, Additional history exists DTaP/Tdap/Td Vaccine (3 - Td or Tdap) 11/06/2031 11/06/2021, 06/13/2010 Colon Cancer Screening-Colonoscopy 10/18/20322022 Hepatitis C Screening Completed 06/10/2025 Influenza Vaccine Completed 06/10/2025, , 10/08/2021, Additional history exists Procedures Procedure Name Priority Date/Time Associated Diagnosis Comments SCAN - LABS 08/20/2025 12:12 PM FINANCIAL BUSINESS ANALYST SCAN - LABS 08/20/2025 12:01 PM FINANCIAL BUSINESS ANALYST SCAN - LABS 08/20/2025 11:59 AM FINANCIAL BUSINESS ANALYST SCAN - LABS 08/20/2025 11:54 AM FINANCIAL BUSINESS ANALYST SCAN - LABS 08/20/2025 11:34 AM FINANCIAL BUSINESS ANALYST ALBUMIN CREATININE RATIO, URINE Routine 06/10/2025 1:40 PM CDT Type 2 diabetes mellitus without complication, without long-term current use of insulin (HCC) Essential hypertension Hypertriglyceride amrita Thyroid nodule Encounter for hepatitis C screening test for low risk patient LIPID PANEL Routine 06/10/2025 8:34 AM CDT Type 2 diabetes mellitus without complication, without long-term current use of insulin (HCC) Essential hypertension Hypertriglyceride amrita Thyroid nodule Encounter for hepatitis C screening test for low risk patient T4, FREE Routine 06/10/2025 8:34 AM CDT Type 2 diabetes mellitus without complication, without long-term current use of insulin (HCC) Essential hypertension Hypertriglyceride amrita Thyroid nodule Encounter for hepatitis C screening test for low risk patient TSH Routine 06/10/2025 8:34 AM CDT Type 2 diabetes mellitus without complication, without long-term current use of insulin (HCC) Essential hypertension Hypertriglyceride amrita Thyroid nodule Encounter for hepatitis C screening test for low risk patient COMPREHENSIVE METABOLIC PANEL Routine 06/10/2025 8:34 AM CDT Type 2 diabetes mellitus without complication, without long-term current use of insulin (HCC) Essential hypertension Hypertriglyceride amrita Thyroid nodule Encounter for hepatitis C screening test for low risk patient HEPATITIS C ANTIBODY Routine 06/10/2025 8:34 AM CDT Type 2 diabetes mellitus without complication, without long-term current use of insulin (HCC) Essential hypertension Hypertriglyceride amrita Thyroid nodule Encounter for hepatitis C screening test for low risk patient POCT HEMOGLOBIN A1C Routine 06/10/2025 7 :53 AM CDT Type 2 diabetes mellitus without complication, without long-term current use of insulin (HCC) EGFR Routine 10/08/2024 5:00 PM FINANCIAL BUSINESS ANALYST Type 2 diabetes mellitus without complication, without long-term current use of insulin (HCC) Hypertriglyceride amrita SCREENING MAMMOGRAM BILATERAL W SILVANO Schedule Routine, Read Routine (OP Routine) 09/04/2024 8:42 AM FINANCIAL BUSINESS ANALYST Screening mammogram, encounter for from Last 3 Months or Most Recently Relevant to Health Maintenance Results * SCAN - LABS (08/20/2025 12:12 PM FINANCIAL BUSINESS ANALYST) Result Torres Pedroza MD Final Result * SCAN - LABS (08/20/2025 12:01 PM FINANCIAL BUSINESS ANALYST) Result Torres Pedroza MD Final Result * SCAN - LABS (08/20/2025 11:59 AM FINANCIAL BUSINESS ANALYST) Result Torres Pedroza MD Final Result * SCAN - LABS (08/20/2025 11:54 AM FINANCIAL BUSINESS ANALYST) Result Torres Pedroza MD Final Result * SCAN - LABS (08/20/2025 11:34 AM FINANCIAL BUSINESS ANALYST) Result Torres Pedroza MD Final Result * Albumin Creatinine Ratio, Urine (06/10/2025 1:40 PM CDT) Pathologist [facility] Albumin Ur <12.0 mg/L Comment: Interpretive Data No reference range established. Current interpretive data was last revised 2019. Creatinine Ur 50.6 mg/dL [facility] Comment: Interpretive Data No reference range established. Current interpretive data was last revised 2019. Albumin Creatinine Ratio, Ur <24 1 - 29 mg/g [facility] Urine 06/10/2025 1:40 PM CDT 06/10/2025 2:18 PM CDT Result Torres Pedroza MD LAB URINE ORDERABLES Final Re sult [facility] Department [place] [address] * Hepatitis C antibody Blood (06/10/2025 8:34 AM CDT) Pathologist [facility] A-HCV II 0.06 Negative <0.90 [facility] Comment: <=0.9 negative 0.9-<1.0 borderline >= 1 positive Blood 06/10/2025 8:34 AM CDT 06/10/2025 8:57 AM CDT us Redd Pedroza MD LAB MICROBIOLOGY - GENERAL OR DERABLES Final Result [facility] [address] [facility] [address] * TSH (06/10/2025 8:34 AM CDT) TSH 2.31 0.27 - 4.20 uIU/mL [facility] Blood 06/10/2025 8:34 AM CDT 06/10/2025 8:57 AM CDT Redd Pedroza MD LAB BLOOD ORDERABLES Final Re sult Performing Organization Address [facility]/ZIP Co de Phone Number [facility] [address] [facility] [address] [place] [address] [place] [address] * T4, free (06/10/2025 8:34 AM CDT) Free T4 1.11 0.93 - 1.70 ng/dL [facility] Blood 06/10/2025 8:34 AM CDT 06/10/2025 8:57 AM CDT us Redd Pedroza MD LAB BLOOD ORDERABLES Final Re sult Performing Organization Address City/[facility]/ZIP Co de Phone Number [facility] [address] [facility] [address] * (ABNORMAL) Lipid panel (06/10/2025 8:34 AM CDT) Triglyceride 327(H) 0 - 150 mg/dL [facility] Cholesterol 191 0 - 200 mg/dL [facility] HDL 38(L) >45 mg/dL [facility] LDL-Calculated 88 mg/dL [facility] CHOL/HDL Risk Ratio 5 Ratio [facility] LDL/HDL Risk Ratio 2 Ratio [facility] Blood 06/10/2025 8:34 AM CDT 06/10/2025 8:57 AM CDT Redd Pedroza MD LAB BLOOD ORDERABLES Final Re sult [facility] [address] [facility] [address] [phone], [facility] * (ABNORMAL) Comprehensive metabolic panel (06/10/2025 8:34 AM CDT) Pathologist [facility] Glucose 107 74 - 200 mg/dL [facility] BUN 13 6 - 20 mg/dL [facility] Creatinine 0.71 0.70 - 1.30 mg/dL [facility] BUN/Creat Ratio 18 Ratio [facility] Bilirubin, Total 0.3 0.0 - 1.2 mg/dL [facility] AST (SGOT) 11 0 - 32 U/L [facility] ALT (SGPT) 11 10 - 35 U/L [facility] Alkaline phosphatase 71 35 - 104 U/L [facility] Calcium 10.8(H) 8.6 - 10.0 mg/dL [facility] Sodium 139 135 - 145 mEq/L [facility] Potassium 4.3 3.5 - 5.1 mEq/L [facility] Chloride 103 98 - 107 mEq/L [facility] CO2 25.4 22.0 - 32.0 mEq/L [facility] Anion Gap 11 3 - 12 mEq/L [facility] Total Protein 7.0 6.0 - 8.1 g/dL [facility] Albumin 4.1 3.5 - 5.2 g/dL [facility] Globulin 2.9 g/dL [facility] Albumin/Globulin 1.4 Ratio [facility] eGFR 101.27 [facility] Blood 06/10/2025 8:34 AM CDT 06/10/2025 8:57 AM CDT Redd Pedroza MD LAB BLOOD ORDERABLES Final Re sult [facility] [address] [place] [id number] * POCT hemoglobin A1c (06/10/2025 7:53 AM CDT) Hemoglobin A1C, POC 5.6 4.0 - 5.6 % Blood 06/10/2025 7:53 AM CDT us Redd Pedroza MD POINT OF CARE TEST ORDERABLES Final Result * eGFR (10/08/2024 5:00 PM FINANCIAL BUSINESS ANALYST) eGFR >90 >=60 mL/min/1. 73 m2 Comment: Interpretive Data Reference Interval Normal >/= 90 mL/min/1.73m2 Mildly decreased* 60 - 89 mL/min/1.73m2 Mildly to moderately decreased 45 - 59 mL/min/1.73m2 Moderately to severely decreased 30 - 44 mL/min/1.73m2 Severely decreased 15 - 29 mL/min/1.73m2 Kidney Failure < 15 mL/min/1.73m2 *Relative to young adult level Estimated glomerular filtration rate is determined by the 2020 CKD-EPI equation recommended by the National Kidney Foundation (A Unifying Approach to GFR Estimation: Recommendations of the NKF-ASK Task Force on Reassessing the Inclusion of Race in Diagnosing Kidney Disease, JASN 2020). The CKD-EPI equation should not be used for patients with unstable renal function and has not been validated in children and those over 70. Current interpretive data was last reviewed 2021. Blood 10/08/2024 5:00 PM FINANCIAL BUSINESS ANALYST 10/08/2024 5:40 PM FINANCIAL BUSINESS ANALYST us Gino Pinto MD PhD LAB BLOOD ORDERABLES Fin al Result DONATO REIS [facility] [place] [address] * Screening Mammogram Bilateral W Silvano (09/04/2024 8:42 AM FINANCIAL BUSINESS ANALYST) Anatomical Region Laterality Modality Breast Bilateral Mammography Narrative 09/04/2024 4:18 PM FINANCIAL BUSINESS ANALYST Mammogram Technique: Bilateral Digital Breast Tomosynthesis, Bilateral C-view 2D Screening mammogram. Views obtained: bilateral craniocaudal and bilateral mediolateral oblique. Computer Aided Detection was performed. Mammogram Findings: The present examination has been compared to prior imaging studies performed at [facility] on 06/21/2020, 06/22/2021, 09/03/2022 and 09/03/2023. There are scattered areas of fibroglandular density. There is no suspicious abnormality in either breast. There are no significant changes from the prior study. There is no suspicious abnormality in either breast. Impression: There is no mammographic evidence of malignancy. Annual screening mammography is recommended. OVERALL FINAL ASSESSMENT: BI-RADS CATEGORY 2: Benign. Procedure Note Angella Gaston MD - 09/04/2024 Mammogram Technique: Bilateral Digital Breast Tomosynthesis, Bilateral C-view 2D Screening mammogram. Views obtained: bilateral craniocaudal and bilateral mediolateral oblique. Computer Aided Detection was performed. Mammogram Findings: The present examination has been compared to prior imaging studies performed at [facility] on 06/21/2020, 06/22/2021, 09/03/2022 and 09/03/2023. There are scattered areas of fibroglandular density. There is no suspicious abnormality in either breast. There are no significant changes from the prior study. There is no suspicious abnormality in either breast. Impression: There is no mammographic evidence of malignancy. Annual screening mammography is recommended. OVERALL FINAL ASSESSMENT: BI-RADS CATEGORY 2: Benign. us Self Screening Mammogram IMG MAMMO PROCEDURES Fi nal Result from Last 3 Months or Most Recently Relevant to Health Maintenance Insurance [facility] CHOICE PLUS [facility] HMO/PPO Address: [address] [address] [place] [address] CIGNA OPEN ACCESS CIGNA ANTHEM ACCESS CHOICE [facility] [place] [id number] [facility] [place] [id number] [facility] [place] [id number] Care Teams [employer] Relationship Specialty Start Date End Date Redd Pedroza MD PCP - General Internal Medicine 08/29/18 Oscar Champion MD Medical Oncologist/Metal Numerical Control Programmer Hematology and Oncology 08/28/18 Maya Velez MD [address] [place] [id number] Gynecology 07/13/24
--- OUTSIDE RECORDS SUMMARY | 2025-08-25 08:43 | XMS_ITS | Encounter Summary ---
Author Organization [facility] Healthcare Address [address] [place] [address] Care Team Providers Care Fiber Optics Supervisor Name Role Phone Oscar Champion MD Unavailable [phone] Redd Pedroza MD Primary Care Provider [phone] Maya Velez MD Unavailable [phone] Reason for Referral * Diagnostic Imaging (Routine) - Closed Specialty Diagnoses / Procedures Referred By Contac t Referred To Contact Diagnoses Thyroid nodule Procedures US Thyroid Redd Pedroza MD Phone: tel: fax: [address] [address] Referral ID Status Reason Start Date Expiration Date Visits Re quested Visits Authorized [id number] Closed 02/10/2020 08/21/2021 1 1 Encounter Details Date Type Department Care Team (Late st Contact Info) Description 02/10/2020 Orders Only Internal Medicine Redd Pedroza MD [address] [address] Thyroid nodule (Primary Dx) Social History Tobacco Use Types Packs/Day Years Used Date Smoking Tobacco: Never Smokeless Tobacco: Never Alcohol Use Standard Drinks/Week Comments Yes 0 (1 standard drink = 0.6 oz pur e alcohol) Comments Unknown Sex and Gender Information Value Date Recorded Sex Assigned at Not on file Legal Sex Female 12:41 AM WELFARE VISITOR Gender Identity Female 05/28/2025 5:09 AM CDT Sexual Orientation Not on file documented as of this encounter Progress Notes * Shantel Shah - 02/10/2020 1:26 PM CDT thyroid documented in this encounter Plan of Treatment Not on file documented as of this encounter Results * US Thyroid (02/18/2020 2:35 PM CDT) Anatomical Region Laterality Modality Head and Neck N/A Ultrasound 02/18/2020 3:09 PM CDT Impressions 02/18/2020 3:14 PM CDT Unchanged 0.5 cm right middle lobe thyroid nodule for which no further follow-up is required. Dictated by: Harriet Tyler M.D. The radiology attending physician has personally reviewed this study, and had reviewed and/or edited this written report and agrees with it. Electronically signed by: Nam Hurst M.D. Narrative 02/18/2020 3:14 PM CDT EXAMINATION: THYROID SONOGRAM HISTORY: Thyroid nodule follow-up. Prior Biopsy: No Patient Risk Factors: None Prior Ultrasound: None FINDINGS: The thyroid is normal in size. Size right lobe: 6.3 cm craniocaudal, 2.5 cm transverse, 2.3 cm AP. Size left lobe: 5.9 cm craniocaudal, 2.6 cm transverse, 2.1 cm AP. Size isthmus: 0.6 cm AP. Estimated total number of nodules >=1cm: 0 Total number of spongy nodules >=2cm not described below (TR1): 0 Total number of mixed cystic and solid nodules >=1.5cm not described below (TR2): 0 Nodule 1: Location: Right mid . Size: 0.5 cm craniocaudal x 0.5 cm transverse x 0.3 cm AP (previously 0.5 cm craniocaudal x 0.5 cm transverse x 0.6 cm AP) Maximum Size: 0.5 cm Composition: Solid/almost completely solid (2) Echogenicity: Hypoechoic (2) Shape: Not taller than wide (0) Margins: Smooth (0) Echogenic foci: None (0) Additional Echogenic foci: None (0) Additional Echogenic foci 2: None (0) ACR TI-RADS total points: 4 ACR TI-RADS risk category: TR4 (4-6 points) Follow-up details: Prior biopsy: No Significant growth: No Changes in features: No Change in ACR TI-RADS 2017 risk category: No ACR TI-RADS recommendation: No further follow-up Procedure Note Nam Hurst MD - 02/18/2020 EXAMINATION: THYROID SONOGRAM HISTORY: Thyroid nodule follow-up. Prior Biopsy: No Patient Risk Factors: None Prior Ultrasound: None FINDINGS: The thyroid is normal in size. Size right lobe: 6.3 cm craniocaudal, 2.5 cm transverse, 2.3 cm AP. Size left lobe: 5.9 cm craniocaudal, 2.6 cm transverse, 2.1 cm AP. Size isthmus: 0.6 cm AP. Estimated total number of nodules >=1cm: 0 Total number of spongy nodules >=2cm not described below (TR1): 0 Total number of mixed cystic and solid nodules >=1.5cm not described below (TR2): 0 Nodule 1: Location: Right mid . Size: 0.5 cm craniocaudal x 0.5 cm transverse x 0.3 cm AP (previously 0.5 cm craniocaudal x 0.5 cm transverse x 0.6 cm AP) Maximum Size: 0.5 cm Composition: Solid/almost completely solid (2) Echogenicity: Hypoechoic (2) Shape: Not taller than wide (0) Margins: Smooth (0) Echogenic foci: None (0) Additional Echogenic foci: None (0) Additional Echogenic foci 2: None (0) ACR TI-RADS total points: 4 ACR TI-RADS risk category: TR4 (4-6 points) Follow-up details: Prior biopsy: No Significant growth: No Changes in features: No Change in ACR TI-RADS 2017 risk category: No ACR TI-RADS recommendation: No further follow-up IMPRESSION: Unchanged 0.5 cm right middle lobe thyroid nodule for which no further follow-up is required. Dictated by: Harriet Tyler M.D. The radiology attending physician has personally reviewed this study, and had reviewed and/or edited this written report and agrees with it. Electronically signed by: Nam Hurst M.D. us Redd Pedroza MD IMG US PROCEDURES Final Resul t documented in this encounter Visit Diagnoses Diagnosis Thyroid nodule- Primary Nontoxic uninodular goiter Thyroid nodule Nontoxic uninodular goiter documented in this encounter Care Teams Fiber Optics Supervisor Relationship Specialty Start Date End Date Redd Pedroza MD PCP - General Internal Medicine 08/29/18 Oscar Champion MD Medical Oncologist/Channel Man Hematology and Oncology 08/28/18 Maya Velez MD [address] [place] [id number] Gynecology 07/13/24 documented as of this encounter
--- OUTSIDE RECORDS SUMMARY | 2025-08-25 08:43 | XMS_ITS | Encounter Summary ---
Author Organization [facility] Address [facility]ly [facility] [place] [address] Care Team Providers Care Appliance Fixer Name Role Phone Oscar Champion MD Unavailable [phone] Redd Pedroza MD Primary Care Provider [phone] Maya Velez MD Unavailable [phone] Encounter Details Date Type Department Care Team (Late st Contact Info) Description 08/20/2025 Orders Only [facility] [address] [id number] Redd Pedroza MD [address] [place] [address] Social History Tobacco Use Types Packs/Day Years [...] on file Legal Sex Female 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 Gender Identity Female 05/28/2025 5:09 AM CDT Sexual Orientation Not on file documented as of this encounter Plan of Treatment Not on file documented as of this encounter Procedures Procedure Name Priority Date/Time Associated Diagnosis Comments SCAN - LABS 08/20/2025 12:12 PM GANG INVESTIGATOR SCAN - LABS 08/20/2025 12:01 PM GANG INVESTIGATOR SCAN - LABS 08/20/2025 11:59 AM GANG INVESTIGATOR SCAN - LABS 08/20/2025 11:54 AM GANG INVESTIGATOR SCAN - LABS 08/20/2025 11:34 AM GANG INVESTIGATOR documented in this encounter Results * SCAN - LABS (08/20/2025 12:12 PM GANG INVESTIGATOR) Result Torres Pedroza MD Final Result * SCAN - LABS (08/20/2025 12:01 PM GANG INVESTIGATOR) Result Torres Pedroza MD Final Result * SCAN - LABS (08/20/2025 11:59 AM GANG INVESTIGATOR) Result Torres Pedroza MD Final Result * SCAN - LABS (08/20/2025 11:54 AM GANG INVESTIGATOR) Result Torres Pedroza MD Final Result * SCAN - LABS (08/20/2025 11:34 AM GANG INVESTIGATOR) Result Torres Pedroza MD Final Result documented in this encounter Visit Diagnoses Not on filedocumented in this encounter Care Teams Appliance Fixer Relationship Specialty Start Date End Date Redd Pedroza MD PCP - General Internal Medicine 08/29/18 Oscar Champion MD Medical Oncologist/Stump Blower Hematology and Oncology 08/28/18 Maya Velez MD [address] [facility] [address] [place] [address] Gynecology 07/13/24 documented as of this encounter
== END 2025-08-25 08:23 | disposition home or self-care (01) ==
LOC: ANHFOHIMG 08:25
PROVIDERS: PCP Internal Medicine; Visit Provider Nurse Practitioner
DX: M85.88 Other specified disorders of bone density and structure, other site (principal); Z78.0 Asymptomatic menopausal state; Z13.820 Encounter for screening for osteoporosis
CPT/HCPCS: 77080